=== PATIENT | male | born 1975 | race Caucasian/White ===

== ENCOUNTER 2018-02-28 15:27 | Emergency (ER) | payer OTHER ==
[~2018-02-28] VITALS: Ht 167.6 cm; Wt 62.6 kg
[~2018-02-28 15:27] MED LIST: HYDROCODONE-AP1 EAC6 PO; PENICILLIN VK500 M1 PO; PERCOCET 5-3251 EACH PO; PHENERGAN 25 MG25 M1 PO; SILVADENE20 GM TP; ULTRAM 50MG TAB50 MG PO; ZOFRAN ODT4 MG PO
[2018-02-28] MEDS ORDERED: TYLENOL EXTRA500 MG PO (15:37)
[2018-02-28] MEDS ORDERED: NAPROSYN500 MG PO (15:38)
[2018-02-28] MEDS ORDERED: ROBAXIN 750 MG750 M1 PO (16:45)
[2018-02-28] MEDS ORDERED: TRAMADOL 50 MG50 MG PO (16:45)
[2018-02-28 16:56] VITALS: BP 135/78
== END 2018-02-28 16:57 | disposition home or self-care (01) ==
LOC: M.ERS 15:27
DX: M25.511 Pain in right shoulder (principal); M54.12 Radiculopathy, cervical region; F17.200 Nicotine dependence, unspecified, uncomplicated; Z90.49 Acquired absence of other specified parts of digestive tract